=== PATIENT | female | born 1955 | race African-American/Black ===

== ENCOUNTER 2021-08-08 07:25 | Inpatient (IN) | payer MEDICARE ==
[~2021-08-08] VITALS: Ht 160 cm; Wt 96.6 kg
--- NOTE | ~2021-08-08 | EMS ---
[address] [address] EMS Patient Care Report Name: SAMI CASTILLO Room #: PRE MMarinRMarin#: [id number] Admission: Attend Phys: Discharge: Date of : 57 Report #: [id number] THIS REPORT FOR: //name// Report Transmitted: 08/08/2021 06:53 EMS Care Summary [place], [place]/[facility] Incident [id number] @ 08/08/2021 06:54 Incident Location [address] [place], [place] [id number] Patient BERNY CASTILLO Female, 66 Years 1955 Patient Address [address] [place], [place] [id number] Patient History Asthma,Hypertension (HTN), Patient Allergies No known allergies, Patient Medications Albuterol, Lisinopril, Chief Complaint wheezing Disposition Transported No Lights/[place] Dispatch Reason Breathing Problem Transported To [facility] Narrative Arrived to find pt standing outside in parking lot next to her vehicle. Pt appeared in strong respiratory distress. Pt stated she woke up with difficulty breathing. Pt states she does not have CHF but has asthma and HTN. Pt able to speak in 3-word sentences. Pt placed on cot and secured with cot straps. Pt [facility] [address] [place] [address] EMS Patient Care Report Name: SAMI CASTILLO Room #: PRE Franki#: [id number] Admission: Attend Phys: Discharge: Date of : 57 Report #: [id number] placed in back of unit. After duo-neb, pt o2 sat not improving much so pt administered solu-medrol and placed on CPAP. Remaining duoneb transferred over to CPAP. Pt did have relief with CPAP and had less work of breathing. Pt remained AOx3, entire time. Monitor failed to upload to ePCR. Pt transported without incident. Care to rn. Initial Vitals @07:02P: 138,R: 24,BP: 210/110,Pain: 0/10,GCS: 15,SpO2: 84,Revised Trauma: 12, @07:08SpO2: 89, @07:18BP: 220/118,Glucose: 156,SpO2: 93, Assessments @07:01MENTAL:Person Oriented,Place Oriented,Time Oriented,Event Oriented,SKIN:HEENT:Head/Face: No Abnormalities,Eyes: No Abnormalities,Neck/Airway: No Abnormalities,LUNG SOUNDS:General: No Abnormalities,Left Upper: No Abnormalities,Right Upper: No Abnormalities,Left Lower: No Abnormalities,Right Lower: No Abnormalities,ABDOMEN:General: No Abnormalities,Left Upper: No Abnormalities,Right Upper: No Abnormalities,Left Lower: No Abnormalities,Right Lower: No Abnormalities,PELVIS//GI:No Abnormalities,EXTREMITIES:Left Arm: No Abnormalities,Right Arm: No Abnormalities,PULSE:NEURO:No Abnormalities,@07:18MENTAL:SKIN:HEENT:LUNG SOUNDS:ABDOMEN:PELVIS//GI:EXTREMITIES:PULSE:NEURO: Impression Respiratory disorder Procedures @07:01 ALS Assessment Response: UnchangedSucceeded @07:03 Oxygen FlowRate: 8 Device: Nebulizer Response: UnchangedSucceeded @07:03 Albuterol - 5 Milligrams (mg) - Nebulized Response: Unchanged @07:03 Atrovent - 0.5 Milligrams (mg) - Nebulized Response: Unchanged @07:04 3-Lead ECG Response: Unchanged @07:08 IV Therapy - Saline Lock 10cc (20 ga) Site: Antecubital-Left Response: UnchangedSucceeded @07:09 Solu-Medrol - 125 Milligrams (mg) - Intravenous (IV) Response: Improved @07:12 CPAP FlowRate: 10 Response: ImprovedSucceeded Timeline 06:54,Call Received 06:54,Dispatch Notified 06:54,Dispatched 06:55,En Route 07:00,On Scene 07:01,At Patient 07:01,ALS Assessment,Response: UnchangedSucceeded, [facility] [address] [place] [address] EMS Patient Care Report Name: SAMI CASTILLO Room #: PRE M.R.#: [id number] Admission: Attend Phys: Discharge: Date of : 57 Report #: [id number] 07:02,BP: 210/110 M,PULSE: 138,RR: 24 R,SPO2: 84 Ox,ETCO2: ,BG: ,PAIN: 0,GCS: 15, 07:03,Oxygen FlowRate: 8 Device: Nebulizer Response: UnchangedSucceeded, 07:03,Albuterol - 5 Milligrams (mg) - Nebulized,Response: Unchanged 07:03,Atrovent - 0.5 Milligrams (mg) - Nebulized,Response: Unchanged 07:04,3-Lead ECG,Response: Unchanged 07:08,IV Therapy - Saline Lock 10cc 20 ga Site: Antecubital-Left,Response: UnchangedSucceeded, 07:08,BP: / M,PULSE: ,RR: R,SPO2: 89 Ox,ETCO2: ,BG: ,PAIN: ,GCS: , 07:09,Solu-Medrol - 125 Milligrams (mg) - Intravenous (IV),Response: Improved 07:12,CPAP FlowRate: 10 Response: ImprovedSucceeded, 07:15,Depart Scene 07:18,BP: 220/118 M,PULSE: ,RR: R,SPO2: 93 Ox,ETCO2: ,B,PAIN: ,GCS: , 07:22,At Destination 07:33,Call Closed Disclaimer v1.1 Copyright 2020 [employer] This EMS Care Summary contains data elements from the applicable legal record (which may be displayed differently). It is designed to provide pertinent information for the following purposes: continuity of care, clinical quality, and state data reporting. The complete legal record is available to ED staff and administrators of the receiving hospital in [email or web address]'s Patient Tracker. All data is provided "as is."
[~2021-08-08 07:25] MED LIST: METFORMIN HCL500 MG PO; NORVASC5 MG PO; PROAIR HFA8.5 GM; PROAIR HFA8.5 GM INH; SINGULAIR 10 MG10 M1 PO; SYMBICORT160 MCG/4. INH; TRANSDERM-SCO1 PATC1 TD; VALIUM5 MG PO
[2021-08-08 07:27] VITALS: BP 217/122
--- NOTE | 2021-08-08 07:38 | EKG ---
[address] [place] [address] ELECTROCARDIOGRAM REPORT Name: SAMI CASTILLO Room #: PRE M.R.#: [id number] Admission: Attend Phys: Discharge: Date of : 57 Report #: [id number] [facility] ED Test Date: 2021-08-08 Test Time: 07:29:45 Pat Name: SAMI CASTILLO Department: Room: Gender: F Legal Administrative Secretary: ELIZABETH : 1955 Requested By: Aftab Pathak Order Number: [id number] MD: César Bergman Measurements Intervals [place] Rate: 111 P: 60 [place]: 152 QRS: 13 QRSD: 98 T: 78 QT: 349 QTc: 474 Interpretive Statements Sinus tachycardia Paired ventricular premature complexes Left atrial enlargement Anterior infarct, old Artifact in lead(s) I,II,III,aVR,aVL,aVF Compared to ECG 11/12/2015 07:02:31 Ventricular premature complex(es) now present Atrial abnormality now present Myocardial infarct finding now present Inferior Q waves no longer present Q waves no longer present Electronically Signed On 08-08-2021 7:38:38 CDT by César Bergman [email or web address] <ELECTRONICALLY SIGNED> By: César Bergman MD, FACC 08/08/2138 8 8 César Bergman MD, [facility] /EPI
[2021-08-08 07:44] LABS: ABSOLUTE NEUTROPHILS 2.5 thou/uL (1.4-8.2); BASOPHILS 0.7 % (0.0-2.0); EOSINOPHILS 1.5 % (0.0-3.0); HEMATOCRIT 47.7 % (37.0-47.0); HEMOGLOBIN 15.7 gm/dL (12.0-15.0); LYMPHOCYTES 28.5 % (24.0-44.0); MCH 35.4 pg (26.0-34.0); MCV 107.2 fL (80.0-100.0); MONOCYTES 10.6 % (1.0-8.0); PLATELET COUNT 190 thou/uL (150-400); POLYS 58.7 % (36.0-66.0); RBC 4.45 mil/uL (4.20-5.00); RDW 15.3 % (10.5-14.5); WBC 4.2 thou/uL (4.0-11.0)
[2021-08-08 08:05] LABS: CALCIUM 8.6 mg/dL (8.5-10.1); CREATININE 0.8 mg/dL (0.6-1.0); POTASSIUM 3.8 mmol/L (3.5-5.1)
[2021-08-08 08:23] LABS: ALBUMIN 3.7 g/dL (3.4-5.0); DIRECT BILIRUBIN 0.3 mg/dL (<0.1-0.2); TOTAL BILIRUBIN 0.7 mg/dL (0.2-1.0); TOTAL PROTEIN 7.6 g/dL (6.4-8.2)
[2021-08-08 08:57] LABS: BE(vivo) 0.7 mmol/L (-2 to +3); HCO3 27.9 mmol/L (22.0-26.0); PCO2 54.9 mmHg (35.0-45.0); PO2 371.6 mmHg (80.0-100.0); pH 7.324 (7.360-7.450); sO2 99.8 % (92.0-98.0)
[2021-08-08 10:08] LABS: ANISOCYTOSIS 1+
[2021-08-08 10:09] LABS: MACROCYTES 1+
[2021-08-08 14:18] VITALS: BP 140/78
[2021-08-08 14:34] VITALS: BP 148/73
--- NOTE | 2021-08-08 15:31 | 2DMMODE ---
[facility] [place] [address] 2 D/M-MODE ECHOCARDIOGRAM Name: SAMI CASTILLO Room #: 214-P ADM IN M.R.#: [id number] Admission: 08/08/21 Attend Phys: Ziggy Leonard MD Discharge: Date of : 57 Report #: [id number] THIS REPORT FOR: cc: FAM - Family physician unknown FAM - Family physician unknown César Bergman MD [facility] ~ APPROVED REPORT Study performed: 08/08/2021 13:15:31 EXAM: Comprehensive 2D, Doppler, and color-flow Echocardiogram Patient Location: ER Room #: 10 Status: routine BSA: 2.01 HR: 64 bpm BP: 140/78 mmHg Rhythm: NSR Other Information Study Quality: Adequate Indications COPD Dyspnea Hypertension/HDD 2D Dimensions IVSd: 10.96 (7-11mm) LVOT Diam: 21.33 (18-24mm) LVDd: 52.32 mm PWd: 10.92 (7-11mm) Ascending Ao: 32.27 (22-36mm) LVDs: 27.00 (25-40mm) Left Atrium: 45.84 (27-40mm) Aortic Root: 31.03 mm IVC: 23.00 mm Volumes Left Atrial Volume (Systole) Single Plane 4CH: 74.76 mL Single Plane 2CH: 61.20 mL LA ESV Index: 37.00 mL/m2 Aortic Valve AoV Peak Sriram.: 1.79 m/s AO Peak Gr.: 12.84 mmHg LVOT Max P.45 mmHg LVOT Max V: 1.45 m/s [facility] [address] [place] [address] 2 D/M-MODE ECHOCARDIOGRAM Name: SAMI CASTILLO Room #: 214-P [facility] IN Ceferino.#: [id number] Admission: 08/08/21 Attend Phys: Ziggy Leonard MD Discharge: Date of : 57 Report #: [id number] [id number] Vmax: 2.90 cm2 Mitral Valve E/A Ratio: 0.7 MV Decel. Time: 207.86 ms MV E Max Sriram.: 0.74 m/s MV A Sriram.: 1.09 m/s MV PHT: 60.28 ms IVRT: 175.32 ms Pulmonary Valve PV Peak Sriram.: 1.17 m/s PV Peak Gr.: 5.52 mmHg Pulmonary Vein P Vein S: 0.63 m/s P Vein A: 0.40 m/s P Vein D: 0.30 m/s P Vein A Dur.: 101.5 msec P Vein S/D Ratio: 2.10 Tricuspid Valve TR Peak Sriram.: 2.76 m/s TR Peak Gr.: 30.51 mmHg PA Pressure: 41.00 mmHg Left Ventricle The left ventricle is normal size. There is normal left ventricular wall thickness. The left ventricular systolic function is normal. The left ventricular ejection fraction is within the normal range. LVEF is >55%. Right Ventricle The right ventricle is normal size. The right ventricular systolic function is normal. Atria Left atrium is dilated. Right atrium is at the upper limits of normal. Aortic Valve The aortic valve is normal in structure. The Aortic valve is sclerotic. Mild aortic regurgitation. There is no aortic valvular stenosis. Mitral Valve The mitral valve is normal in structure. Trace mitral regurgitation. No evidence of mitral valve stenosis. [facility] [address] [place] [address] 2 D/M-MODE ECHOCARDIOGRAM Name: SAMI CASTILLO Room #: 214-P ADM IN M.R.#: [id number] Admission: 08/08/21 Attend Phys: Ziggy Leonard MD Discharge: Date of : 57 Report #: [id number] Tricuspid Valve The tricuspid valve is normal in structure. There is mild tricuspid regurgitation. Estimated PAP 41 mmHg. There is moderate pulmonary hypertension. Pulmonic Valve The pulmonary valve is normal in structure. There is no pulmonic valvular regurgitation. Great Vessels The aortic root is normal in size. IVC is dilated and collapses <50% with inspiration. Pericardium Mild anterior pericardial effusion. <Conclusion> Technically difficult study Normal left ventricle size/wall thickness Ejection fraction 55-60% Grade 1 diastolic dysfunction Normal right ventricular size/function Left atrium mildly dilated Mild mitral aortic valve insufficiency Trace tricuspid valve insufficiency Mild tricuspid valve insufficiency Pulmonary systolic pressure estimated 41 mmHg No pericardial effusion Normal aortic root size <ELECTRONICALLY SIGNED> By: César Bergman MD, FACC 08/08/211530 30 30 César Bergman MD, FACC /INF
[2021-08-08 15:40] VITALS: BP 157/84
--- NOTE | 2021-08-08 17:55 | NUR ---
TOOK OVER CARE FOR THIS PATIENT AT 1400; REPORT FROM ER WAS RECEIVED. NURSE GIVING REPORT WAS ELISEO. PATIENT BROUGHT BY WHEELCHAIR TO UNIT BUT THIS NURSE WAS NOT INFORMED WHEN THE PATIENT WAS DROPPED OFF BY ER STAFF. PATIENT WEARING 3 L O2 VIA NASAL CANNULA; REPORTS NEEDING BREATHING TX. RESPIRATORY THERAPY ADMIN TX AND TO SET-UP PATIENTS CPAP FOR TONIGHT. PATIENT DENIES ANY PAIN AT THIS TIME, DENIES HEADACHE, FATIGUE, DIZZINESS, NAUSEA OR VOMITING. PATIENT EATING DINNER AT THIS TIME. FALL PRECAUTIONS IN PLACE. CALL LIGHT AND PERSONAL BELONGING WITHIN REACH.
[2021-08-08 20:04] VITALS: BP 156/87
[2021-08-09 02:06] LABS: GLYCOHEMOGLOBIN (HGB A1C) 5.3 % (4.8-5.6)
[2021-08-09 05:13] VITALS: BP 138/56
[2021-08-09 06:12] LABS: HEMATOCRIT 45.9 % (37.0-47.0); HEMOGLOBIN 14.8 gm/dL (12.0-15.0); MCH 35.3 pg (26.0-34.0); MCHC 32.4 g/dL (28.0-37.0); RBC 4.21 mil/uL (4.20-5.00); RDW 15.5 % (10.5-14.5); WBC 5.6 thou/uL (4.0-11.0)
[2021-08-09 06:34] LABS: CALCIUM 8.6 mg/dL (8.5-10.1); CREATININE 0.8 mg/dL (0.6-1.0); MAGNESIUM 1.5 mg/dL (1.8-2.4); POTASSIUM 4.5 mmol/L (3.5-5.1)
[2021-08-09 06:38] LABS: CHOLESTEROL 158 mg/dL (<200); HDL CHOLESTEROL 107 mg/dL (>40); LDL CHOLESTEROL 43 mg/dL (<100); TC:HDL 1.5 Ratio (Not establshd); TRIGLYCERIDE 41 mg/dL (<150); VLDL 8 mg/dL (<40)
--- NOTE | 2021-08-09 06:38 | NUR ---
ASSUMED CARE OF PT AT 1900. PT ASSESSED TO BE AOX4 66F HERE FOR RESP FAILURE. PT IS ABLE TO AMBULATE TO THE BATHROOM SBA, IS ON 3L NC WITH SOME WHEEZING THROUGHOUT, AND HAS BREATHING TX AND SOLUMEDROL SCHEDULED. PT RESTED IN ROOM THROUGHOUT THE NIGHT, VSS WITH NO PAIN. SR WITH A 1 DEGREE BLOCK ON THE MONITOR. WILL CONT TO MONITOR.
[2021-08-09 06:39] LABS: SERUM ASSESSMENT Clear
[2021-08-09 09:07] VITALS: BP 135/65
[2021-08-09 12:47] VITALS: BP 164/64
[2021-08-09 16:00] VITALS: BP 167/75
[2021-08-09 19:35] VITALS: BP 181/79
[2021-08-09 23:55] VITALS: BP 125/67
--- NOTE | 2021-08-10 04:08 | NUR ---
PATIENT IS AAOX4 RESTING IN HER ROOM. PATIENT STATES THAT SHE HAS BEEN HAVING A NAGGING COUGH THAT WILL NOT SUBSIDE. PATIENT COUGH IS DRY AND NO SPUTUUM OBSERVED. NOTIFIED ELECTRICAL DESIGNER AND RECEIVED ORDER FOR MUCINEX PO. PATIENT IS AMBULATORY ABD MOVES FREQUENTLY. EDUCATED PATIENT THAT SHE SHOULD CALL FOR ASSISTANCE DUE TO BEING SHORT OF BREATH. PATIENT HAS NO WOUNDS IDENTIFIED. SHE IS CALM AND COOPERATIVE. TAKES ALL HER MEDICATIONS PRESCRIBED. DENIES ANY OTHER ISSUES WITH PAIN. SHE IS ON 3L NC WHEN AWAKE AND CPAP AT NIGHT. NO S/S OF DISTRESS NOTED. WILL CONTINUE TO MONITPR.
[2021-08-10 05:11] VITALS: BP 153/55
[2021-08-10 07:30] VITALS: BP 160/75
[2021-08-10 11:50] VITALS: BP 150/73
--- NOTE | 2021-08-10 12:10 | NUR ---
Assumed care of pt this AM. Pt is A&O x4, on RA. Afib on the monitor. Denies any current pain. Pt c/o swelling in the lower extremities, which has gone down significantly since yesterday. Pt also has some swelling of the LUE believed to be related to IV. Plan to discharge home today w/ HH. Will continue to assess.
[2021-08-10 15:30] VITALS: BP 197/73
--- NOTE | 2021-08-10 19:24 | NUR ---
Assumed care of pt this AM. Pt A&O x4, recieved on CPAP & switched to 3L NC for daytime. Pt SB w/ PVCs on the monitor. Denies any chest pain. PRN orders for hydralazine received this afternoon after BP elevated. Walked w/ pt around unit this evening.
[2021-08-10 19:29] VITALS: BP 171/55
--- NOTE | 2021-08-11 03:55 | NUR ---
PATIENT RESTING IN HER ROOM. SHE IS AAOX4 AND FOLLOWS ALL COMMANDS. SHE IS COOPERATIVE AND COMPLIANT WITH HER MEDICATIONS. SBP CONTINUES TO RUN HIGH ALTHOUGH HYDRALAZINE HAS BEEN ADMINISTERED. SHE STATES THAT SHE HAS CONTUED TO HAVE ISSUES WITH A COUGH BUT IT IS IMPROVING. SHE IS ABLE TO UMBULATE UNDER HER OWN POWER. HER VITAL SIGNS OTHER THAN BP HAS BEEN WITHIN NORMAL LIMITS. SHE EXHIBITS EQUAL STRENGTH IN SANJEEV AND BLL EXTREMETIES. HR HOVERS AROUND 60 BPM WHEN SHE IS AT REST. BREATH SOUNDS REMAIN COARSE. NO S/S OF DISTRESS NOTED. WILL CONTINUE TO MONITOR.
[2021-08-11 04:35] VITALS: BP 142/63
[2021-08-11 07:40] VITALS: BP 172/72
[2021-08-11 11:20] VITALS: BP 184/73
--- NOTE | 2021-08-11 13:48 | NUR ---
met with patient who resides in [facility]. She reports at vt she plans to have her dtr in law stay with her. She is hopeful to return to work. She is retired but works at [employer]. 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 Patient has a walker at home but does not use. She cont to drive. She has home oxygen via [facility]. She reports it bleeds into her CPAP. She has nebulizer at home. Patient with sat/ex. Needs 2 liters 02 at rest and 4 Liters with activity. Sp with [facility]. faxed orders. Patient with no preference for Home health agency. [facility].
[2021-08-11 15:40] VITALS: BP 159/69
--- NOTE | 2021-08-11 16:57 | NUR ---
ASSESSMENT CHARTED - MEDS PER JOSÉ MANUEL SHIRLEY DIET AND FLUIDS. NON CO'S OF PAIN OR NASUEA. AMBULTING IN THE HALLS WITH PHYS THERAPY. UP TO THE CHAIR. EXERCISE OX COMPLETED THIS SHIFT. 95% AT REST ON RA - 91% WITH AMBULATION. PT GIVEN COUGH MED REQUESTED - MOIST COUGH WITH SOME SPUTUM PRODUCTION. PT WITH NO CO'S AT THE PRESENT TIME. ? HOME IN THE AM.
[2021-08-11 17:38] VITALS: BP 159/69
--- NOTE | 2021-08-11 18:06 | NUR ---
No weekend dc. Phys to discuss code status with dtr.
[2021-08-11 20:36] VITALS: BP 182/78
--- NOTE | 2021-08-12 03:20 | NUR ---
PATIENT DOING WELL THIS EVENING. SHE WAS TALKING ON PHONE UPON STAFF ENTRANCE FOR ASSESSMENT. SHE IS AAOX4 AND FOLLOWS ALL COMMANDS. PATIENT STILL SOUNDS CONGESTED BUT SEEMS TO HAVE IMPROVED SOME FRON YESTERDAY EVENING ASSESSMENT. SHE STATES THAT SHIS BREATHING EASIER. STATES THAT SHE FEELS LIKE SHE IS READY FOR DISCHARGE. SHE CONTINUES TO HAVE SOME ISSUES CONTROLLING HER SBP. SHE DENIES ANY PAIN OR HEADACHE. PATIENT IS COMPLIANT WITH MEDICATION AND TREATMENT. WEARS CPAP AT NIGHT AND IS ON 3L NC. AMBULATES WELL UNDER HER OWN POWER. NO S/S OF DISTRESS NOTED. WILL CONTINUE TO MONITOR FOR CHANGES IN STATUS.
[2021-08-12 04:33] VITALS: BP 156/56
[2021-08-12 08:00] VITALS: BP 154/78
[2021-08-12 12:00] VITALS: BP 192/96
[2021-08-12 16:30] VITALS: BP 180/85
[2021-08-12 19:51] VITALS: BP 171/62
[2021-08-13 05:02] VITALS: BP 163/77
--- NOTE | 2021-08-13 06:00 | NUR ---
PT AMBULATING TO BATHROOM INDEPENDENTLY AND IS TOLERATING WELL. DENIES PAIN. RESTING COMFORTABLY. NO NEEDS VOICED. CALL LIGHT WITHIN REACH. FREQUENT OBSERVATION.
[2021-08-13 07:44] VITALS: BP 153/83
[2021-08-13 10:59] LABS: CALCIUM 8.6 mg/dL (8.5-10.1); CREATININE 0.8 mg/dL (0.6-1.0); MAGNESIUM 1.3 mg/dL (1.8-2.4); POTASSIUM 3.8 mmol/L (3.5-5.1)
[2021-08-13 11:30] VITALS: BP 181/78
[2021-08-13] MEDS ORDERED: ACETAMINOPHEN325 M1 PO (13:33)
[2021-08-13] MEDS ORDERED: DOXYCYCLINE 10100 M2 PO (13:33)
[2021-08-13] MEDS ORDERED: PREDNISONE 20 M20 M1 PO (13:33)
[2021-08-13] MEDS ORDERED: ACCUNEB SO1.25 MG/1 INH (13:33)
[2021-08-13] MEDS ORDERED: GUAIFENESIN DM S5 ML PO (13:33)
[2021-08-13] MEDS ORDERED: ACCUPRIL40 MG PO (13:33)
[2021-08-13 14:52] VITALS: BP 180/70
== END 2021-08-13 15:40 | disposition home health service (06) | DRG 871 ==
LOC: ER 07:25 → 2N 09:24 → EROBS 09:24 → 2N 14:45
PROVIDERS: Student in an Organized Health Care Education/Training Program; ADMIT Internal Medicine; ATTEND Internal Medicine
PROC: 5A09357 Assistance with Respiratory Ventilation, Less than 24 Consecutive Hours, Continuous Positive Airway Pressure (ICD-10-PCS; principal; 2021-08-10)
PROC: 5A09357 Assistance with Respiratory Ventilation, Less than 24 Consecutive Hours, Continuous Positive Airway Pressure (ICD-10-PCS; 2021-08-11)
PROC: 5A09357 Assistance with Respiratory Ventilation, Less than 24 Consecutive Hours, Continuous Positive Airway Pressure (ICD-10-PCS; 2021-08-12)
DX: A41.9 Sepsis, unspecified organism (principal); J18.9 Pneumonia, unspecified organism; J96.21 Acute and chronic respiratory failure with hypoxia; J96.22 Acute and chronic respiratory failure with hypercapnia; J44.1 Chronic obstructive pulmonary disease with (acute) exacerbation; J44.0 Chronic obstructive pulmonary disease with (acute) lower respiratory infection; I16.0 Hypertensive urgency; Z20.822 Contact with and (suspected) exposure to COVID-19; I10 Essential (primary) hypertension; J45.909 Unspecified asthma, uncomplicated; F17.210 Nicotine dependence, cigarettes, uncomplicated; G47.33 Obstructive sleep apnea (adult) (pediatric); D75.1 Secondary polycythemia; H05.20 Unspecified exophthalmos; E11.65 Type 2 diabetes mellitus with hyperglycemia; E66.01 Morbid (severe) obesity due to excess calories; Z79.899 Other long term (current) drug therapy; Z85.118 Personal history of other malignant neoplasm of bronchus and lung; Z68.37 Body mass index [BMI] 37.0-37.9, adult; Z71.6 Tobacco abuse counseling; Z28.21 Immunization not carried out because of patient refusal
CPT/HCPCS: 10081

== ENCOUNTER 2021-10-08 14:03 | Emergency (ER) | payer MEDICARE ==
--- NOTE | ~2021-10-08 | EMS ---
[facility] [address] [place] [address] EMS Patient Care Report Name: DEBORAH CASTILLO Room #: DEP ANEL Doan#: [id number] Admission: 10/08/21 Attend Phys: Discharge: 10/08/21 Date of : 57 Report #: [id number] THIS REPORT FOR: //name// Report Transmitted: 10/09/2021 10:58 EMS Care Summary [place], [place]/[facility] Incident [id number] @ 10/08/2021 13:06 Incident Location [address] [place] [id number] Patient BERNY CASTILLO Female, 66 Years 1955 Patient Address [address] [place] [address] [address] [place] [address] Patient History Asthma,Chronic Obstructive Pulmonary Disease (COPD),Hypertension (HTN), Patient Allergies No known allergies, Patient Medications Albuterol, Lisinopril, Chief Complaint cardiac arrest Disposition Transported Lights/[place] Dispatch Reason Cardiac Arrest/ Transported To [facility] Narrative pt was with friend, coming home from running errands. no c/o illness. friend states that pt passed out and fell in parking lot. she states, "she didn't [facility] [address] [place] [address] EMS Patient Care Report Name: DEBORAH CASTILLO Room #: DEP ER Franki#: [id number] Admission: 10/08/21 Attend Phys: Discharge: 10/08/21 Date of : 57 Report #: [id number] fall hard ". she was able to help pt up and they walked into the lobby of the [facility] building where pt had 2nd syncopal episode. friend states pt was feeling SOB and trying to take her inhaler when she passed out the 2nd time. on arrival, Pumper crew states pt was pulseless and non breathing. AED advises no shock. we arrive to find pt pulseless and non breathing, iGel and AED are in place, CPR in progress. EKG shows asystole. IO placed in L tibia, IO meds as listed in flow chart. auto pulse in place. after 30 min of ACLS pt loaded to cot and transport to [facility] emergency. pt arrives at [facility] in asystole w/ CPR in progress. Initial Vitals @13:38P: 164,R: 15,EtCO2: 57, @13:19P: 167, @13:58P: 153,R: 23,EtCO2: 29, @13:30P: 157,R: 13,EtCO2: 48, @13:27P: 47,R: 11,EtCO2: 41, @13:50P: 163,R: 9,EtCO2: 31, @13:34P: 159,R: 11,EtCO2: 49, @14:00P: 168,R: 23,EtCO2: 24, @13:43P: 83,R: 9,EtCO2: 59, @13:48P: 158,R: 12,EtCO2: 41, @13:38P: 164,R: 12,EtCO2: 63, @13:23R: 32,EtCO2: 37, @13:23P: 169,R: 49,EtCO2: 36, @13:33P: 158,R: 13,EtCO2: 53, @13:44P: 157,R: 7,EtCO2: 47, @13:38P: 163,R: 14,EtCO2: 56, @13:28P: 163,EtCO2: 40, @13:43P: 157,R: 9,EtCO2: 56, @13:30R: 12,EtCO2: 52, @13:35P: 199,EtCO2: 60, @13:46P: 155,R: 9,EtCO2: 51, @13:53P: 163,R: 20,EtCO2: 35, @13:49P: 70,R: 11,EtCO2: 56, @13:18P: 78,R: 0,BP: 0/0,GCS: 3,Glucose: 76,Revised Trauma: 0, @14:03P: 152,GCS: 3,EtCO2: 23, Assessments @13:15MENTAL:Unresponsive,SKIN:No Abnormalities,HEENT:Head/Face: Other,LUNG SOUNDS:General: No Abnormalities,ABDOMEN:General: No Abnormalities,PELVIS//GI:EXTREMITIES:PULSE:Carotid: Absent,NEURO:@14:06 Impression Cardiac arrest [address] [address] EMS Patient Care Report Name: DEBORAH CASTILLO Room #: DEP ANEL Doan#: [id number] Admission: 10/08/21 Attend Phys: Discharge: 10/08/21 Date of : 57 Report #: [id number] Procedures @ARSON AND BOMB INVESTIGATOR Response: Unchanged @13:23 Epinephrine 1:10 - 1 Milligrams (mg) - Intraosseous (IO) Response: Unchanged @13:43 Epinephrine 1:10 - 1 Milligrams (mg) - Intraosseous (IO) Response: Unchanged @13:38 Epinephrine 1:10 - 1 Milligrams (mg) - Intraosseous (IO) Response: Unchanged @13:28 Epinephrine 1:10 - 1 Milligrams (mg) - Intraosseous (IO) Response: Improved @13:34 Epinephrine 1:10 - 1 Milligrams (mg) - Intraosseous (IO) Response: Unchanged @13:58 Epinephrine 1:10 - 1 Milligrams (mg) - Intraosseous (IO) Response: Unchanged @13:30 Epinephrine 1:10 - 1 Milligrams (mg) - Intraosseous (IO) Response: Unchanged @13:53 Epinephrine 1:10 - 1 Milligrams (mg) - Intraosseous (IO) Response: Unchanged @13:19 Epinephrine 1:10 - 1 Milligrams (mg) - Intraosseous (IO) Response: Unchanged @13:40 IV Therapy - Saline Lock cc (20 ga) Site: Antecubital-Left Response: UnchangedFailed @13:18 Intraosseous - Normal Saline (.9% NaCl) 400cc (EZ-IO (Blue 25mm)) Site: SG-Oozou-Zfhr Proximal Response: UnchangedSucceeded @PTAOxygen FlowRate: 15 Device: Bag Valve Mask (BVM) Response: UnchangedSucceeded @PTAiGEL Response: UnchangedSucceeded @13:15 ALS Assessment Response: Unchanged @13:21 Response: UnchangedSucceeded @13:48 Stretcher Response: Unchanged @13:16 3-Lead ECG Response: UnchangedSucceeded @14:04 Epinephrine 1:10 - 1 Milligrams (mg) - Intraosseous (IO) Response: Unchanged Timeline ARSON AND BOMB INVESTIGATOR,Response: Unchanged ARSON AND BOMB INVESTIGATOR,Oxygen FlowRate: 15 Device: Bag Valve Mask (BVM) Response: UnchangedSucceeded, ARSON AND BOMB INVESTIGATOR,iGEL Response: UnchangedSucceeded, 13:03,Call Received 13:03,Dispatch Notified 13:06,Dispatched 13:08,En Route 13:14,On Scene 13:15,At Patient [facility] [address] [place] [address] EMS Patient Care Report Name: ANNAYUNGDEBORAH Room #: DEP ANEL Doan#: [id number] Admission: 10/08/21 Attend Phys: Discharge: 10/08/21 Date of : 57 Report #: [id number] 13:15,ALS Assessment,Response: Unchanged 13:16,3-Lead ECG,Response: UnchangedSucceeded, 13:18,Intraosseous - Normal Saline (.9% NaCl) 400cc EZ-IO (Blue 25mm) Site: CH-Zihgl-Dmzc Proximal,Response: UnchangedSucceeded, 13:18,BP: 0/0 M,PULSE: 78,RR: 0 R,SPO2: Ox,ETCO2: ,B,PAIN: ,GCS: 3, 13:19,Epinephrine 1:10 - 1 Milligrams (mg) - Intraosseous (IO),Response: Unchanged 13:19,BP: / M,PULSE: 167,RR: R,SPO2: Ox,ETCO2: ,BG: ,PAIN: ,GCS: , 13:21,Response: UnchangedSucceeded, 13:23,BP: / M,PULSE: 169,RR: 49 R,SPO2: Ox,ETCO2: 36 ,BG: ,PAIN: ,GCS: , 13:23,Epinephrine 1:10 - 1 Milligrams (mg) - Intraosseous (IO),Response: Unchanged 13:23,BP: / M,PULSE: ,RR: 32 R,SPO2: Ox,ETCO2: 37 ,BG: ,PAIN: ,GCS: , 13:27,BP: / M,PULSE: 47,RR: 11 R,SPO2: Ox,ETCO2: 41 ,BG: ,PAIN: ,GCS: , 13:28,Epinephrine 1:10 - 1 Milligrams (mg) - Intraosseous (IO),Response: Improved 13:28,BP: / M,PULSE: 163,RR: R,SPO2: Ox,ETCO2: 40 ,BG: ,PAIN: ,GCS: , 13:30,Epinephrine 1:10 - 1 Milligrams (mg) - Intraosseous (IO),Response: Unchanged 13:30,BP: / M,PULSE: 157,RR: 13 R,SPO2: Ox,ETCO2: 48 ,BG: ,PAIN: ,GCS: , 13:30,BP: / M,PULSE: ,RR: 12 R,SPO2: Ox,ETCO2: 52 ,BG: ,PAIN: ,GCS: , 13:33,BP: / M,PULSE: 158,RR: 13 R,SPO2: Ox,ETCO2: 53 ,BG: ,PAIN: ,GCS: , 13:34,Epinephrine 1:10 - 1 Milligrams (mg) - Intraosseous (IO),Response: Unchanged 13:34,BP: / M,PULSE: 159,RR: 11 R,SPO2: Ox,ETCO2: 49 ,BG: ,PAIN: ,GCS: , 13:35,BP: / M,PULSE: 199,RR: R,SPO2: Ox,ETCO2: 60 ,BG: ,PAIN: ,GCS: , 13:38,Epinephrine 1:10 - 1 Milligrams (mg) - Intraosseous (IO),Response: Unchanged 13:38,BP: / M,PULSE: 164,RR: 12 R,SPO2: Ox,ETCO2: 63 ,BG: ,PAIN: ,GCS: , 13:38,BP: / M,PULSE: 163,RR: 14 R,SPO2: Ox,ETCO2: 56 ,BG: ,PAIN: ,GCS: , 13:38,BP: / M,PULSE: 164,RR: 15 R,SPO2: Ox,ETCO2: 57 ,BG: ,PAIN: ,GCS: , 13:40,IV Therapy - Saline Lock cc 20 ga Site: Antecubital-Left,Response: UnchangedFailed, 13:43,BP: / M,PULSE: 157,RR: 9 R,SPO2: Ox,ETCO2: 56 ,BG: ,PAIN: ,GCS: , 13:43,Epinephrine 1:10 - 1 Milligrams (mg) - Intraosseous (IO),Response: Unchanged 13:43,BP: / M,PULSE: 83,RR: 9 R,SPO2: Ox,ETCO2: 59 ,BG: ,PAIN: ,GCS: , 13:44,BP: / M,PULSE: 157,RR: 7 R,SPO2: Ox,ETCO2: 47 ,BG: ,PAIN: ,GCS: , 13:46,BP: / M,PULSE: 155,RR: 9 R,SPO2: Ox,ETCO2: 51 ,BG: ,PAIN: ,GCS: , 13:48,Stretcher,Response: Unchanged 13:48,BP: / M,PULSE: 158,RR: 12 R,SPO2: Ox,ETCO2: 41 ,BG: ,PAIN: ,GCS: , 13:49,BP: / M,PULSE: 70,RR: 11 R,SPO2: Ox,ETCO2: 56 ,BG: ,PAIN: ,GCS: , 13:50,BP: / M,PULSE: 163,RR: 9 R,SPO2: Ox,ETCO2: 31 ,BG: ,PAIN: ,GCS: , 13:52,Depart Scene 13:53,Epinephrine 1:10 - 1 Milligrams (mg) - Intraosseous (IO),Response: Unchanged [facility] [address] [place] [address] EMS Patient Care Report Name: DEBORAH CASTILLO Room #: DEP ER Franki#: [id number] Admission: 10/08/21 Attend Phys: Discharge: 10/08/21 Date of : 57 Report #: [id number] 13:53,BP: / M,PULSE: 163,RR: 20 R,SPO2: Ox,ETCO2: 35 ,BG: ,PAIN: ,GCS: , 13:58,Epinephrine 1:10 - 1 Milligrams (mg) - Intraosseous (IO),Response: Unchanged 13:58,BP: / M,PULSE: 153,RR: 23 R,SPO2: Ox,ETCO2: 29 ,BG: ,PAIN: ,GCS: , 14:00,BP: / M,PULSE: 168,RR: 23 R,SPO2: Ox,ETCO2: 24 ,BG: ,PAIN: ,GCS: , 14:03,BP: / M,PULSE: 152,RR: R,SPO2: Ox,ETCO2: 23 ,BG: ,PAIN: ,GCS: 3, 14:04,Epinephrine 1:10 - 1 Milligrams (mg) - Intraosseous (IO),Response: Unchanged 14:06,At Destination 14:30,Call Closed Disclaimer [email or web address] Copyright 2021 [employer] This EMS Care Summary contains data elements from the applicable legal record (which may be displayed differently). It is designed to provide pertinent information for the following purposes: continuity of care, clinical quality, and state data reporting. The complete legal record is available to ED staff and administrators of the receiving hospital in [employer] Patient Tracker. All data is provided "as is."
--- NOTE | ~2021-10-08 | EMS ---
[facility] [address] [place] [address] EMS Patient Care Report Name: DEBORAH CASTILLO Room #: DEP ANEL Doan#: [id number] Admission: 10/08/21 Attend Phys: Discharge: 10/08/21 Date of : 57 Report #: [id number] THIS REPORT FOR: //name// Report Transmitted: 10/09/2021 07:36 EMS Care Summary [place], [place]/[facility] Incident [id number] @ 10/08/2021 13:06 Incident Location [address] [place] [id number] Patient BERNY CASTILLO Female, 66 Years 1955 Patient Address [address] [place] [address] [address] [place] [address] Patient History Asthma,Chronic Obstructive Pulmonary Disease (COPD),Hypertension (HTN), Patient Allergies No known allergies, Patient Medications Albuterol, Lisinopril, Chief Complaint cardiac arrest Disposition Transported [place] Dispatch Reason Cardiac Arrest/ Transported To [facility] Narrative pt was with friend, coming home from running errands. no c/o illness. friend states that pt passed out and fell in parking lot. she states, "she didn't [facility] [address] [place] [address] EMS Patient Care Report Name: DEBORAH CASTILLO Room #: DEP ER Franki#: [id number] Admission: 10/08/21 Attend Phys: Discharge: 10/08/21 Date of : 57 Report #: [id number] fall hard ". she was able to help pt up and they walked into the lobby of the [facility] building where pt had 2nd syncopal episode. friend states pt was feeling SOB and trying to take her inhaler when she passed out the 2nd time. on arrival, Pumper crew states pt was pulseless and non breathing. AED advises no shock. we arrive to find pt pulseless and non breathing, iGel and AED are in place, CPR in progress. EKG shows asystole. IO placed in L tibia, IO meds as listed in flow chart. auto pulse in place. after 30 min of ACLS pt loaded to cot and transport to [facility] emergency. pt arrives at [facility] in asystole w/ CPR in progress. Initial Vitals @13:38P: 164,R: 15,EtCO2: 57, @13:19P: 167, @13:58P: 153,R: 23,EtCO2: 29, @13:30P: 157,R: 13,EtCO2: 48, @13:27P: 47,R: 11,EtCO2: 41, @13:50P: 163,R: 9,EtCO2: 31, @13:34P: 159,R: 11,EtCO2: 49, @14:00P: 168,R: 23,EtCO2: 24, @13:43P: 83,R: 9,EtCO2: 59, @13:48P: 158,R: 12,EtCO2: 41, @13:38P: 164,R: 12,EtCO2: 63, @13:23R: 32,EtCO2: 37, @13:23P: 169,R: 49,EtCO2: 36, @13:33P: 158,R: 13,EtCO2: 53, @13:44P: 157,R: 7,EtCO2: 47, @13:38P: 163,R: 14,EtCO2: 56, @13:28P: 163,EtCO2: 40, @13:43P: 157,R: 9,EtCO2: 56, @13:30R: 12,EtCO2: 52, @13:35P: 199,EtCO2: 60, @13:46P: 155,R: 9,EtCO2: 51, @13:53P: 163,R: 20,EtCO2: 35, @13:49P: 70,R: 11,EtCO2: 56, @13:18P: 78,R: 0,BP: 0/0,GCS: 3,Glucose: 76,Revised Trauma: 0, @14:03P: 152,GCS: 3,EtCO2: 23, Assessments @13:15MENTAL:Unresponsive,SKIN:No Abnormalities,HEENT:Head/Face: Other,LUNG SOUNDS:General: No Abnormalities,ABDOMEN:General: No Abnormalities,PELVIS//GI:EXTREMITIES:PULSE:Carotid: Absent,NEURO:@14:06 Impression Cardiac arrest [address] [address] EMS Patient Care Report Name: DEBORAH CASTILLO Room #: DEP ANEL Doan#: [id number] Admission: 10/08/21 Attend Phys: Discharge: 10/08/21 Date of : 57 Report #: [id number] Procedures @DIGESTER OPERATOR HELPER Response: Unchanged @13:23 Epinephrine 1:10 - 1 Milligrams (mg) - Intraosseous (IO) Response: Unchanged @13:43 Epinephrine 1:10 - 1 Milligrams (mg) - Intraosseous (IO) Response: Unchanged @13:38 Epinephrine 1:10 - 1 Milligrams (mg) - Intraosseous (IO) Response: Unchanged @13:28 Epinephrine 1:10 - 1 Milligrams (mg) - Intraosseous (IO) Response: Improved @13:34 Epinephrine 1:10 - 1 Milligrams (mg) - Intraosseous (IO) Response: Unchanged @13:58 Epinephrine 1:10 - 1 Milligrams (mg) - Intraosseous (IO) Response: Unchanged @13:30 Epinephrine 1:10 - 1 Milligrams (mg) - Intraosseous (IO) Response: Unchanged @13:53 Epinephrine 1:10 - 1 Milligrams (mg) - Intraosseous (IO) Response: Unchanged @13:19 Epinephrine 1:10 - 1 Milligrams (mg) - Intraosseous (IO) Response: Unchanged @13:40 IV Therapy - Saline Lock cc (20 ga) Site: Antecubital-Left Response: UnchangedFailed @13:18 Intraosseous - Normal Saline (.9% NaCl) 400cc (EZ-IO (Blue 25mm)) Site: CF-Syvke-Aqim Proximal Response: UnchangedSucceeded @PTAOxygen FlowRate: 15 Device: Bag Valve Mask (BVM) Response: UnchangedSucceeded @PTAiGEL Response: UnchangedSucceeded @13:15 ALS Assessment Response: Unchanged @13:21 Response: UnchangedSucceeded @13:48 Stretcher Response: Unchanged @13:16 3-Lead ECG Response: UnchangedSucceeded @14:04 Epinephrine 1:10 - 1 Milligrams (mg) - Intraosseous (IO) Response: Unchanged Timeline DIGESTER OPERATOR HELPER,Response: Unchanged DIGESTER OPERATOR HELPER,Oxygen FlowRate: 15 Device: Bag Valve Mask (BVM) Response: UnchangedSucceeded, DIGESTER OPERATOR HELPER,iGEL Response: UnchangedSucceeded, 13:03,Call Received 13:03,Dispatch Notified 13:06,Dispatched 13:08,En Route 13:14,On Scene 13:15,At Patient [facility] [address] [place] [address] EMS Patient Care Report Name: DEBORAH CASTILLO Room #: DEP ANEL Doan#: [id number] Admission: 10/08/21 Attend Phys: Discharge: 10/08/21 Date of : 57 Report #: [id number] 13:15,ALS Assessment,Response: Unchanged 13:16,3-Lead ECG,Response: UnchangedSucceeded, 13:18,Intraosseous - Normal Saline (.9% NaCl) 400cc EZ-IO (Blue 25mm) Site: QK-Czknw-Ydre Proximal,Response: UnchangedSucceeded, 13:18,BP: 0/0 M,PULSE: 78,RR: 0 R,SPO2: Ox,ETCO2: ,B,PAIN: ,GCS: 3, 13:19,Epinephrine 1:10 - 1 Milligrams (mg) - Intraosseous (IO),Response: Unchanged 13:19,BP: / M,PULSE: 167,RR: R,SPO2: Ox,ETCO2: ,BG: ,PAIN: ,GCS: , 13:21,Response: UnchangedSucceeded, 13:23,BP: / M,PULSE: 169,RR: 49 R,SPO2: Ox,ETCO2: 36 ,BG: ,PAIN: ,GCS: , 13:23,Epinephrine 1:10 - 1 Milligrams (mg) - Intraosseous (IO),Response: Unchanged 13:23,BP: / M,PULSE: ,RR: 32 R,SPO2: Ox,ETCO2: 37 ,BG: ,PAIN: ,GCS: , 13:27,BP: / M,PULSE: 47,RR: 11 R,SPO2: Ox,ETCO2: 41 ,BG: ,PAIN: ,GCS: , 13:28,Epinephrine 1:10 - 1 Milligrams (mg) - Intraosseous (IO),Response: Improved 13:28,BP: / M,PULSE: 163,RR: R,SPO2: Ox,ETCO2: 40 ,BG: ,PAIN: ,GCS: , 13:30,Epinephrine 1:10 - 1 Milligrams (mg) - Intraosseous (IO),Response: Unchanged 13:30,BP: / M,PULSE: 157,RR: 13 R,SPO2: Ox,ETCO2: 48 ,BG: ,PAIN: ,GCS: , 13:30,BP: / M,PULSE: ,RR: 12 R,SPO2: Ox,ETCO2: 52 ,BG: ,PAIN: ,GCS: , 13:33,BP: / M,PULSE: 158,RR: 13 R,SPO2: Ox,ETCO2: 53 ,BG: ,PAIN: ,GCS: , 13:34,Epinephrine 1:10 - 1 Milligrams (mg) - Intraosseous (IO),Response: Unchanged 13:34,BP: / M,PULSE: 159,RR: 11 R,SPO2: Ox,ETCO2: 49 ,BG: ,PAIN: ,GCS: , 13:35,BP: / M,PULSE: 199,RR: R,SPO2: Ox,ETCO2: 60 ,BG: ,PAIN: ,GCS: , 13:38,Epinephrine 1:10 - 1 Milligrams (mg) - Intraosseous (IO),Response: Unchanged 13:38,BP: / M,PULSE: 164,RR: 12 R,SPO2: Ox,ETCO2: 63 ,BG: ,PAIN: ,GCS: , 13:38,BP: / M,PULSE: 163,RR: 14 R,SPO2: Ox,ETCO2: 56 ,BG: ,PAIN: ,GCS: , 13:38,BP: / M,PULSE: 164,RR: 15 R,SPO2: Ox,ETCO2: 57 ,BG: ,PAIN: ,GCS: , 13:40,IV Therapy - Saline Lock cc 20 ga Site: Antecubital-Left,Response: UnchangedFailed, 13:43,BP: / M,PULSE: 157,RR: 9 R,SPO2: Ox,ETCO2: 56 ,BG: ,PAIN: ,GCS: , 13:43,Epinephrine 1:10 - 1 Milligrams (mg) - Intraosseous (IO),Response: Unchanged 13:43,BP: / M,PULSE: 83,RR: 9 R,SPO2: Ox,ETCO2: 59 ,BG: ,PAIN: ,GCS: , 13:44,BP: / M,PULSE: 157,RR: 7 R,SPO2: Ox,ETCO2: 47 ,BG: ,PAIN: ,GCS: , 13:46,BP: / M,PULSE: 155,RR: 9 R,SPO2: Ox,ETCO2: 51 ,BG: ,PAIN: ,GCS: , 13:48,Stretcher,Response: Unchanged 13:48,BP: / M,PULSE: 158,RR: 12 R,SPO2: Ox,ETCO2: 41 ,BG: ,PAIN: ,GCS: , 13:49,BP: / M,PULSE: 70,RR: 11 R,SPO2: Ox,ETCO2: 56 ,BG: ,PAIN: ,GCS: , 13:50,BP: / M,PULSE: 163,RR: 9 R,SPO2: Ox,ETCO2: 31 ,BG: ,PAIN: ,GCS: , 13:52,Depart Scene 13:53,Epinephrine 1:10 - 1 Milligrams (mg) - Intraosseous (IO),Response: Unchanged [facility] [address] [place] [address] EMS Patient Care Report Name: DEBORAH CASTILLO Room #: DEP ER Franki#: [id number] Admission: 10/08/21 Attend Phys: Discharge: 10/08/21 Date of : 57 Report #: [id number] 13:53,BP: / M,PULSE: 163,RR: 20 R,SPO2: Ox,ETCO2: 35 ,BG: ,PAIN: ,GCS: , 13:58,Epinephrine 1:10 - 1 Milligrams (mg) - Intraosseous (IO),Response: Unchanged 13:58,BP: / M,PULSE: 153,RR: 23 R,SPO2: Ox,ETCO2: 29 ,BG: ,PAIN: ,GCS: , 14:00,BP: / M,PULSE: 168,RR: 23 R,SPO2: Ox,ETCO2: 24 ,BG: ,PAIN: ,GCS: , 14:03,BP: / M,PULSE: 152,RR: R,SPO2: Ox,ETCO2: 23 ,BG: ,PAIN: ,GCS: 3, 14:04,Epinephrine 1:10 - 1 Milligrams (mg) - Intraosseous (IO),Response: Unchanged 14:06,At Destination 14:30,Call Closed Disclaimer v1.1 Copyright 2021 [employer] This EMS Care Summary contains data elements from the applicable legal record (which may be displayed differently). It is designed to provide pertinent information for the following purposes: continuity of care, clinical quality, and state data reporting. The complete legal record is available to ED staff and administrators of the receiving hospital in [employer]'s Patient Tracker. All data is provided "as is."
[~2021-10-08 14:03] MED LIST changes: +ACCUNEB SO1.25 MG/1 INH; +ACCUPRIL40 MG PO; +ACETAMINOPHEN325 M1 PO; +DOXYCYCLINE 10100 M2 PO; +GUAIFENESIN DM S5 ML PO; +PREDNISONE 20 M20 M1 PO
== END 2021-10-08 14:12 ==
LOC: ER 14:03
DX: I46.9 Cardiac arrest, cause unspecified (principal); I10 Essential (primary) hypertension; J45.909 Unspecified asthma, uncomplicated; F15.10 Other stimulant abuse, uncomplicated; Z85.118 Personal history of other malignant neoplasm of bronchus and lung; Z79.51 Long term (current) use of inhaled steroids; Z79.84 Long term (current) use of oral hypoglycemic drugs; Z79.891 Long term (current) use of opiate analgesic; Z79.899 Other long term (current) drug therapy